=== PATIENT | female | born 1975 | race Caucasian/White ===

== ENCOUNTER 2017-01-04 16:06 | Emergency (ER) | payer OTHER ==
[2017-01-04 16:13] VITALS: BMI 26.4
[2017-01-04 17:51] LABS: BASOPHIL 0.6 % (0-2.0); EOSINOPHIL 0.7 % (0-4.5); MCH 26.4 pg (25.7-33.7); MCHC 32.7 g/dl (32.0-36.0); MEAN CELL VOLUME 80.7 fl (80-96); MEAN PLT VOLUME 9.9 fl (7.5-11.1); NEUTROPHILS 68.6 % (42.8-82.8); PLATELET COUNT 201 K/MM3 (134-434); RDW 16.4 % (11.6-15.6); WHITE BLOOD COUNT 7.8 K/mm3 (4.0-10.0)
[2017-01-04 17:57] LABS: URINE APPEARANCE CLOUDY; URINE BILIRUBIN NEGATIVE (NEGATIVE); URINE BLOOD 2+ (NEGATIVE); URINE COLOR AMBER; URINE GLUCOSE (UA) NEGATIVE (NEGATIVE); URINE KETONE NEGATIVE (NEGATIVE); URINE NITRITE NEGATIVE (NEGATIVE); URINE PROTEIN NEGATIVE (NEGATIVE); URINE UROBILINOGEN NEGATIVE mg/dL (0.2-1.0)
--- NOTE | 2017-01-04 17:59 | PDOC ---
History of Present Illness - General Chief Complaint: Pain Stated Complaint: FATIGUE Time Seen by Provider: 01/04/17 16:51 History Source: Patient Exam Limitations: No Limitations - History of Present Illness Travel History: No Initial Comments: 01/04/17 17:48 This is a 41-year-old woman with past medical history of who presents today with pelvic cramping and vaginal spotting for 2 days. Patient states she was seen at [facility] approximately 2-3 weeks ago and had a positive urine test there. Patient was her usual state of health until 2 days ago when she noticed some spotting in her underwear. She denies any recent sexual activity. Last menstrual period was 11/27/2016. She rates the pain for/10 and describes as a usual menstrual cramp. She denies fevers, chills, chest pain, dysuria, hematuria, rectal bleeding, constipation, diarrhea, vaginal discharge other than the spotting. PMD: none Well Puller: None Denies tobacco denies drugs Reported occasional EtOH until she found she was . None since then. Past medical history: None Past surgical history: None NKDA Past History - Past Medical History Allergies/Adverse Reactions: Allergies Allergy/AdvReac Type Severity Reaction Status Date / Time No Known Allergies Allergy Verified 01/04/17 16:09 Home Medications: Ambulatory Orders NK [No Known Home Medication] 08/21/15 Asthma: No Cancer: No Cardiac Disorders: No COPD: No Diabetes: No HTN: No Seizures: No Thyroid Disease: No - Reproductive History Is Patient Now?: Yes (8 weeks) - Suicide/Smoking/Psychosocial Hx Smoking History: Never smoked Hx Alcohol Use: No Drug/Substance Use Hx: No Hx Substance Use Treatment: No Review of Systems - Review of Systems Able to Perform ROS?: Yes Is the patient limited Somali proficient: No Constitutional: No: Symptoms Reported HEENTM: No: Symptoms Reported Respiratory: No: Symptoms reported Cardiac (ROS): No: Symptoms Reported ABD/GI: Yes: See HPI : No: Symptoms Reported Musculoskeletal: No: Symptoms Reported Integumentary: No: Symptoms Reported Neurological: No: Symptoms reported *Physical Exam - Vital Signs Last Vital Signs Temp Pulse Resp BP Pulse Ox 97.6 F 56 L 18 146/84 100 01/04/17 16:09 01/04/17 16:09 01/04/17 16:09 01/04/17 16:09 01/04/17 16:09 - Physical Exam General Appearance: Yes: Appropriately Dressed. No: Apparent Distress HEENT: positive: EOMI, CAMILA, Normal ENT Inspection Neck: positive: Trachea midline, Supple. negative: Tender Respiratory/Chest: positive: Lungs Clear, Normal Breath Sounds. negative: Chest Tender, Respiratory Distress, Accessory Muscle Use Cardiovascular: positive: Regular Rhythm, S1, S2, Bradycardia. negative: Edema , JVD, Murmur Female Pelvic Exam: positive: normal external exam, cervical os closed, adnexal tenderness (left side). negative: CMT, discharge Gastrointestinal/Abdominal: positive: Normal Bowel Sounds, Soft. negative: Tender Musculoskeletal: positive: Normal Inspection. negative: CVA Tenderness Extremity: positive: Normal Capillary Refill, Normal Inspection, Normal Range of Motion Integumentary: positive: Normal Color, Dry, Warm Neurologic: positive: retail account representative II-XII NML intact, Fully Oriented, Alert, Normal Mood/ Affect, Normal Response, Motor Strength 06/28 ED Treatment Course - LABORATORY CBC & Chemistry Diagram: 01/04/17 17:35 01/04/17 17:35 - RADIOLOGY Radiology Studies Ordered: Category Date Time Status TRANSVAGINAL US PREG [US] Stat Ultrasound 01/04/17 17:32 Ordered Medical Decision Making - Medical Decision Making 01/04/17 17:59 A/P: This is a 41-year-old woman with past medical history of who presents today with pelvic cramping and vaginal spotting for 2 days. Patient states she was seen at [facility] approximately 2-3 weeks ago and had a positive urine test there. Patient was her usual state of health until 2 days ago when she noticed some spotting in her underwear. She denies any recent sexual activity. Last menstrual period was 11/27/2016. She rates the pain for/10 and describes as a usual menstrual cramp. She also reports vaginal itching. She denies fevers, chills, chest pain, dysuria, hematuria, rectal bleeding, constipation, diarrhea, vaginal discharge other than the spotting. SENIOR LINUX UNIX ENGINEER exam with no blood in the vaginal vault. Normal vaginal secretions noted. Cervical os closed. Adnexal tenderness on the left side. No cervical motion tenderness. Differential diagnoses include ectopic , catie infection I will collect CBC with differential, BMP, urinalysis, urine test, beta hCG, transvaginal ultrasound, urine culture, urine GC. I'll reevaluate the patient after all testing is completed. 01/04/17 18:49 Patient signed out to JEMAL Tripathi. *DC/Admit/Observation/Transfer Diagnosis at time of Disposition: Threatened - Discharge Dispostion Disposition: HOME Condition at time of disposition: Stable Admit: No - Referrals Referrals: Sherrell Barksdale MD [Staff Physician] - - Patient Instructions Printed Discharge Instructions: DI for Threatened Additional Instructions: Pelvic rest MUST FOLLOW UP WITH WITH YOUR DIRECTOR OF MARKET INTELLIGENCE OR THE ONE LISTED ON YOUR DISCHARGE/ ABRAHAM RIVERO YOUR BETA HCG TODAY; 21109.4 MUST HAVE REPEAT ULTRASOUND RETURN TO THE ER FOR SEVERE/PERSISTENT/WORSENING SYMPTOMS You had a transvaginal ultrasound done today in the emergency department: This is a preliminary exam impression: Within the endometrium a cystic fluid collection most likely represents a gestational sac with no pole and no yolk sac identified. This may be due to a spontaneous or an early intrauterine that is too early to detect a pole and an early ectopic Print Language: ANGOLAN - Post Discharge Activity
[2017-01-04 18:02] LABS: URINE MUCUS MODERATE; URINE RBC 23; URINE WBC 11
[2017-01-04 18:20] LABS: ANION GAP 6 (8-16); CALCIUM 9.4 mg/dL (8.5-10.1); CO2 28 mmol/L (21-32); CREATININE 0.6 mg/dL (0.55-1.02); GLUCOSE,RANDOM 91 mg/dL (74-106)
[2017-01-04 19:59] VITALS: BP 155/94; PULSE 57; TEMP 98.2
--- NOTE | 2017-01-04 21:44 | PDOC ---
*Physical Exam - Vital Signs Last Vital Signs Temp Pulse Resp BP Pulse Ox 98.2 F 57 L 16 155/94 100 01/04/17 19:58 01/04/17 19:58 01/04/17 19:58 01/04/17 19:58 01/04/17 19:58 ED Treatment Course - LABORATORY CBC & Chemistry Diagram: 01/04/17 17:35 01/04/17 17:35 - ADDITIONAL ORDERS Additional order review: Laboratory Results 01/04/17 01/04/17 01/04/17 17:35 17:35 17:35 Sodium 138 Potassium 3.6 Chloride 104 Carbon Dioxide 28 Anion Gap 6 L BUN 9 D Creatinine 0.6 Random Glucose 91 D Calcium 9.4 Beta HCG, Quant 62622.4 Urine Color Jessica Urine Appearance Cloudy Urine pH 6.0 Ur Specific [place] 1.021 Urine Protein Negative Urine Glucose (UA) Negative Urine Ketones Negative Urine Blood 2+ H Urine Nitrite Negative Urine Bilirubin Negative Urine Urobilinogen Negative Urine WBC (Auto) 11 Urine RBC (Auto) 23 Ur Epithelial Cells Rare Urine Mucus Moderate Urine HCG, Qual Positive Blood Type O POSITIVE Antibody Screen Negative 01/04/17 17:35 RBC 4.93 D MCV 80.7 MCHC 32.7 RDW 16.4 H MPV 9.9 Neutrophils % 68.6 D Lymphocytes % 22.6 D Monocytes % 7.5 Eosinophils % 0.7 D Basophils % 0.6 - RADIOLOGY Radiograph Interpretation: 01/04/17 21:43 Transvaginal ultrasound preliminary report: Within the endometrium a cystic fluid collection most likely represents a gestational sac with no pole and no yolk sac identified. This may be due to a spontaneous or an early intrauterine that is too early to to detect a pole and an early ectopic *DC/Admit/Observation/Transfer Diagnosis at time of Disposition: Threatened - Discharge Dispostion Disposition: HOME Condition at time of disposition: Stable Admit: No - Referrals Referrals: Sherrell Barksdale MD [Staff Physician] - - Patient Instructions Printed Discharge Instructions: DI for Threatened Additional Instructions: Pelvic rest MUST FOLLOW UP WITH WITH YOUR MOTOR VEHICLE PARTS INTERPRETER OR THE ONE LISTED ON YOUR DISCHARGE/ ABRAHAM RIVERO YOUR BETA HCG TODAY; 44852.4 MUST HAVE REPEAT ULTRASOUND RETURN TO THE ER FOR SEVERE/PERSISTENT/WORSENING SYMPTOMS You had a transvaginal ultrasound done today in the emergency department: This is a preliminary exam impression: Within the endometrium a cystic fluid collection most likely represents a gestational sac with no pole and no yolk sac identified. This may be due to a spontaneous or an early intrauterine that is too early to detect a pole and an early ectopic Print Language: BELGIAN - Post Discharge Activity
[2017-01-04 22:05] LABS: URINE LEUK ESTERASE Negative (NEGATIVE)
== END 2017-01-04 22:14 | disposition home or self-care (01) ==
LOC: JER 16:06
DX: O20.0 Threatened abortion (principal); Z3A.08 8 weeks gestation of pregnancy
CPT/HCPCS: 36415; 76817-TC; 80048; 81003; 81015; 84702; 84703; 85025; 86850; 86900; 86901; 87086; 99282-25

== ENCOUNTER 2017-01-06 17:57 | Emergency (ER) | payer OTHER ==
[2017-01-06 18:02] VITALS: BP 149/87; PULSE 58; TEMP 98.1; BMI 24.7
--- NOTE | 2017-01-06 18:02 | PDOC ---
Rapid Medical Evaluation Chief Complaint: Blood Pressure Problem Time Seen by Provider: 01/06/17 18:00 Medical Evaluation: Allergies Allergy/AdvReac Type Severity Reaction Status Date / Time No Known Allergies Allergy Verified 01/06/17 17:58 01/06/17 18:00 I have performed a brief in-person evaluation of this patient. The Patient presents with a chief complaint of elevated blood pressure Patient seen in ed 01/04/17 for threatened , followed up with ob today who referred her back her to ed due to elevated blood pressure in office. complaining of blurred vision. , 6 weeks . Pertinent physical exam findings are: NAD unlabored breathing no peripheral edema steady gait I have ordered the following: urinalysis The patient will proceed to the ED for further evaluation.
[2017-01-06 18:43] LABS: URINE APPEARANCE SLCLOUDY; URINE BILIRUBIN NEGATIVE (NEGATIVE); URINE BLOOD 2+ (NEGATIVE); URINE COLOR LTYELLOW; URINE GLUCOSE (UA) NEGATIVE (NEGATIVE); URINE KETONE NEGATIVE (NEGATIVE); URINE NITRITE NEGATIVE (NEGATIVE); URINE PROTEIN NEGATIVE (NEGATIVE); URINE UROBILINOGEN NEGATIVE mg/dL (0.2-1.0)
--- NOTE | 2017-01-06 18:48 | PDOC ---
History of Present Illness - General History Source: Patient, Old Records Exam Limitations: No Limitations - History of Present Illness Initial Comments: 01/06/17 18:53 The patient is a 41 year old female who is currently 6 weeks and presenting with her , with a significant past medical history of HTN, who presents to the emergency department with a possible threatened . The patient was seen in the ED 3 days ago with vaginal bleeding, back pain and abdominal cramping. She was told that it was possible she was having a threatened and told to follow up with her THERMAL SURFACING MACHINE OPERATOR. Today she went to her THERMAL SURFACING MACHINE OPERATOR with the same symptoms and was advised to come to the ED for further evaluation. According to the patient, she received a pelvic exam today while at her GYNs office. The patient denies chest pain, shortness of breath, headache and dizziness. Denies fever, chills, nausea, vomit, diarrhea and constipation. Denies dysuria, frequency, urgency and hematuria. Allergies: None Past surgical history: None reported Social history: No alcohol, tobacco or drug use reported <Abelino Betancourt - Last Filed: 01/06/17 18:52> <Ophelia Hernandez - Last Filed: 01/06/17 23:49> - General Chief Complaint: Blood Pressure Problem Stated Complaint: 6wks preg / BLOOD PRESSURE PROBLEM Time Seen by Provider: 01/06/17 18:00 Past History <Abelino Betancourt - Last Filed: 01/06/17 18:52> - Past Medical History Asthma: No Cancer: No Cardiac Disorders: No COPD: No Diabetes: No HTN: Yes Seizures: No Thyroid Disease: No - Suicide/Smoking/Psychosocial Hx Smoking History: Never smoked Have you smoked in the past 12 months: No Information on smoking cessation initiated: No Hx Alcohol Use: No Drug/Substance Use Hx: No Substance Use Type: None Hx Substance Use Treatment: No <Ophelia Hernandez - Last Filed: 01/06/17 23:49> - Past Medical History Allergies/Adverse Reactions: Allergies Allergy/AdvReac Type Severity Reaction Status Date / Time No Known Allergies Allergy Verified 01/06/17 17:58 Home Medications: Ambulatory Orders NK [No Known Home Medication] 08/21/15 Review of Systems - Review of Systems Able to Perform ROS?: Yes Comments:: 01/06/17 18:53 GENERAL/CONSTITUTIONAL: No fever or chills. No weakness. HEAD, EYES, EARS, NOSE AND THROAT: No change in vision. No ear pain or discharge. No sore throat.- CARDIOVASCULAR: No chest pain or shortness of breath RESPIRATORY: No cough, wheezing, or hemoptysis. GASTROINTESTINAL: (+) Abdominal pain. No nausea, vomiting, diarrhea or constipation. GENITOURINARY: (+) Vaginal bleeding. No dysuria, frequency, or change in urination. MUSCULOSKELETAL: (+) Back pain. No joint or muscle swelling or pain. No neck pain. SKIN: No rash NEUROLOGIC: No headache, vertigo, loss of consciousness, or change in strength/ sensation. ENDOCRINE: No increased thirst. No abnormal weight change HEMATOLOGIC/LYMPHATIC: No anemia, easy bleeding, or history of blood clots. ALLERGIC/IMMUNOLOGIC: No hives or skin allergy. <Abelino Betancourt - Last Filed: 01/06/17 18:52> *Physical Exam - Vital Signs Last Vital Signs Temp Pulse Resp BP Pulse Ox 98.1 F 58 L 18 149/87 100 01/06/17 17:58 01/06/17 17:58 01/06/17 17:58 01/06/17 17:58 01/06/17 17:58 - Physical Exam Comments: 01/06/17 18:53 GENERAL: Awake, alert, and fully oriented, in no acute distress HEAD: No signs of trauma, normocephalic, atraumatic EYES: PERRLA, EOMI, sclera anicteric, conjunctiva clear ENT: Auricles normal inspection, hearing grossly normal, nares patent, oropharynx clear without exudates. Moist mucosa NECK: Normal ROM, supple, no lymphadenopathy, JVD, or masses LUNGS: No distress, speaks full sentences, clear to auscultation bilaterally HEART: Regular rate and rhythm, normal S1 and S2, no murmurs, rubs or gallops, peripheral pulses normal and equal bilaterally. ABDOMEN: Soft, nontender, normoactive bowel sounds. No guarding, no rebound. No masses EXTREMITIES : Normal inspection, Normal range of motion, no edema. No clubbing or cyanosis. NEUROLOGICAL: Cranial nerves II through XII grossly intact. Normal speech, normal gait, no focal sensorimotor deficits SKIN: Warm, Dry, normal turgor, no rashes or lesions noted. PELVIC EXAM: Deferred. <Abelino Betancourt - Last Filed: 01/06/17 18:52> - Vital Signs Last Vital Signs Temp Pulse Resp BP Pulse Ox 98.1 F 58 L 18 149/87 100 01/06/17 17:58 01/06/17 17:58 01/06/17 17:58 01/06/17 17:58 01/06/17 17:58 <Ophelia Hernandez - Last Filed: 01/06/17 23:49> ED Treatment Course - ADDITIONAL ORDERS Additional order review: Laboratory Results 01/06/17 18:10 Urine Color Ltyellow Urine Appearance Slcloudy Urine pH 6.0 Ur Specific [place] 1.012 Urine Protein Negative Urine Glucose (UA) Negative Urine Ketones Negative Urine Blood 2+ H Urine Nitrite Negative Urine Bilirubin Negative Urine Urobilinogen Negative <Abelino Betancourt - Last Filed: 01/06/17 18:52> Medical Decision Making - Medical Decision Making 01/06/17 23:40 31-year-old female who states she is about 6 weeks , presents with vaginal bleeding. She was seen here in January 04 for similar complaint. On Jan 04 beta-hCG 15,000 and pelvic US irregular intrauterine saclike structure, but no evidence of pole or yolk sac, very suspicious for failed early . Beta-hCG is only 11,000. Blood type O+. Ultrasound tonight shows a twin gestation. Twin A is 6 weeks 6 days. No heart activity could be documented compatible with demise. 20. Gestational age 6 weeks 1 day. No activity could be documented compatible with demise. Impression demise. Plan follow-up with her VARIOUS EXCEPTIONALITIES TEACHER this week <Ophelia Hernandez - Last Filed: 01/06/17 23:49> *DC/Admit/Observation/Transfer - Attestations Scribe Attestion: 01/06/17 18:54 Documentation prepared by Abelino Betancourt, acting as medical imaging specialist for Ophelia Hernandez MD <Abelino Betancourt - Last Filed: 01/06/17 18:52> <Ophelia Hernandez - Last Filed: 01/06/17 23:49> Diagnosis at time of Disposition: demise, Essential hypertension Qualifiers: Weeks of gestation: less than 8 weeks Qualified Code(s): Z3A.01 - Less than 8 weeks gestation of - Discharge Dispostion Disposition: HOME Condition at time of disposition: Stable - Patient Instructions Printed Discharge Instructions: DI for Threatened , DI for High Blood Pressure Additional Instructions: please followup with your auto radio mechanic It is important to see your regular physician about your high blood pressure Print Language: UKRAINIAN
[2017-01-06 18:50] LABS: URINE MUCUS RARE; URINE RBC 6; URINE WBC 4
[2017-01-06 21:31] LABS: URINE LEUK ESTERASE 1+ (NEGATIVE)
== END 2017-01-07 00:12 | disposition home or self-care (01) ==
LOC: JER 17:57
DX: O30.091 Twin pregnancy, unable to determine number of placenta and number of amniotic sacs, first trimester (principal); O02.1 Missed abortion; O10.911 Unspecified pre-existing hypertension complicating pregnancy, first trimester; Z3A.01 Less than 8 weeks gestation of pregnancy
CPT/HCPCS: 36415; 76817-TC; 81003; 81015; 84702; 86850; 86900; 86901; 99283-25

== ENCOUNTER 2017-01-14 10:24 | Day surgery (SDC) | payer OTHER ==
[2017-01-14 11:03] LABS: BASOPHIL 0.2 % (0-2.0); EOSINOPHIL 1.6 % (0-4.5); MCH 25.8 pg (25.7-33.7); MCHC 31.5 g/dl (32.0-36.0); MEAN PLT VOLUME 9.6 fl (7.5-11.1); NEUTROPHILS 67.4 % (42.8-82.8); PLATELET COUNT 176 K/MM3 (134-434); RDW 16.9 % (11.6-15.6)
[2017-01-14 11:16] LABS: INR 1.04 (0.82-1.09); PROTHROMBIN TIME (PATIENT) 11.8 SEC (9.98-11.88)
[2017-01-14 11:35] LABS: ALBUMIN 3.4 g/dl (3.4-5.0); ANION GAP 5 (8-16); CALCIUM 8.5 mg/dL (8.5-10.1); CO2 28 mmol/L (21-32); GLUCOSE,RANDOM 84 mg/dL (74-106)
[2017-01-14 11:50] VITALS: BMI 24.7
[2017-01-14 11:55] LABS: ALK PHOS 88 U/L (45-117); BILIRUBIN,TOTAL 0.4 mg/dL (0.2-1.0); CREATININE 0.6 mg/dL (0.55-1.02); SGOT/AST 14 U/L (15-37); SGPT/ALT 26 U/L (12-78); TOT PROT 6.9 g/dl (6.4-8.2)
[2017-01-14 15:19] LABS: URINE APPEARANCE CLEAR; URINE BILIRUBIN NEGATIVE (NEGATIVE); URINE BLOOD 2+ (NEGATIVE); URINE COLOR YELLOW; URINE GLUCOSE (UA) NEGATIVE (NEGATIVE); URINE KETONE NEGATIVE (NEGATIVE); URINE NITRITE NEGATIVE (NEGATIVE); URINE PROTEIN NEGATIVE (NEGATIVE); URINE UROBILINOGEN NEGATIVE mg/dL (0.2-1.0)
[2017-01-14 15:59] LABS: URINE MUCUS RARE; URINE RBC 67 /hpf (0-3); URINE WBC 2 /hpf (3-5)
--- NOTE | 2017-01-14 16:18 | EKG ---
Test Reason : Blood Pressure : / mmHG Vent. Rate : 049 BPM Atrial Rate : 049 BPM P-R Int : 142 ms QRS Dur : 094 ms QT Int : 470 ms P-R-T Axes : 045 034 029 degrees QTc Int : 424 ms MARKED SINUS BRADYCARDIA ST ELEVATION, CONSIDER EARLY REPOLARIZATION NO PREVIOUS ECGS AVAILABLE Confirmed by KIARA SKINNER MD ([id number]) on 01/14/2017 4:18:03 PM Referred By: Danielle Villareal Confirmed By:KIARA SKINNER MD
[2017-01-14] MEDS ORDERED: LACTATED RINGERS SOLUTION 1,000 ML/1,000 ML INFUS.BAG IV SCH (17:30)
--- NOTE | 2017-01-14 17:35 | HP ---
Past Medical History - Primary Care Physician PCP:: Danielle Villareal - Admission Chief Complaint: 41 , LMP 12/03/16 6 weeks gestation , was diagnozed twin gestation with abs heart for boths poles on 01/06 by sono. pt continues to bleed , ut still enlarged, hence she is taken for d&C suction today. History of Present Illness: h/o vaginal bleeding for 2 weeks seen in ER on 01/06/17 [place]cg [place] 79326.4 miu . 01/06/17 sono shows twin gestation , A sac with pole 5mm, 6.1 wks, twin B 5.6 mm 6.2 wks ga . no feta heart for both poles. ut 9.3x6.4 cm . pt continues to bleed has cramps . 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 Weeks Gestation by Dates: 6 Heme/Onc: No: Anemia Infectious Disease: No: STD's Endocrine: No: Diabetes Mellitus - Past Surgical History Past Surgical History: Yes: None Hx Myomectomy: No Hx Transabdominal Cerclage: No - Smoking History Smoking history: Never smoked Have you smoked in the past 12 months: No - Alcohol/Substance Use Hx Alcohol Use: No History of Substance Use: reports: None - Social History History of Recent Travel: No Home Medications - Allergies Allergies/Adverse Reactions: Allergies Allergy/AdvReac Type Severity Reaction Status Date / Time No Known Allergies Allergy Verified 01/14/17 11:51 - Home Medications Home Medications: Ambulatory Orders Iron 18 mg PO DAILY 01/14/17 Physical Exam-CHECK INSPECTOR Vital Signs: Vital Signs Temperature 98.2 F 01/14/17 12:12 Pulse Rate 52 L 01/14/17 12:12 Respiratory Rate 20 01/14/17 12:12 Blood Pressure 162/88 01/14/17 12:12 O2 Sat by Pulse Oximetry (%) 100 01/14/17 12:12 Constitutional: Yes: Well Nourished, No Distress Eyes: Yes: WNL HENT: Yes: WNL, Normocephalic Neck: Yes: WNL Cardiovascular: Yes: WNL, Regular Rate and Rhythm Respiratory: Yes: WNL, Regular, CTA Bilaterally Gastrointestinal: Yes: WNL. No: Distention, Tenderness, Vomiting Renal/: Yes: WNL Pelvis: Yes: WNL External Genitalia: Yes: Normal Vaginal Exam: Yes: Bleeding Cervix: Yes: Bleeding, Other (os close). No: Cerv Motion Tenderness Uterus: Yes: Anteverted, Enlarged (8 weeks size), Soft. No: Tender Adnexa: Normal: Bilateral, Not Palpable: Bilateral (Not tender) Breast(s): Yes: WNL. No: Mass Musculoskeletal: Yes: WNL Extremities: Yes: WNL Edema: No Integumentary: Yes: WNL Neurological: Yes: WNL ...Motor Strength: WNL Psychiatric: Yes: WNL Labs: CBC, BMP 01/14/17 10:51 01/14/17 10:51 Laboratory Tests 01/14/17 10:51 Blood Type O POSITIVE Antibody Screen Negative Problem List - Problem (1) Missed Code(s): O02.1 - MISSED (2) 6 weeks gestation of Code(s): Z3A.01 - LESS THAN 8 WEEKS GESTATION OF (3) Twin gestation in first trimester Code(s): O30.001 - TWIN PREG, UNSP NUM PLCNTA & AMNIO SACS, FIRST TRIMESTER (4) AMA (advanced maternal age) multigravida 35+ Code(s): O09.529 - SUPERVISION OF ELDERLY MULTIGRAVIDA, UNSPECIFIED TRIMESTER Assessment/Plan 41 yrs , 6 weeks gestation twins, missed ab , abs FHR for both poles, continuue to bleed Plan Dilatation Suction Currettage
[2017-01-14 20:03] LABS: URINE LEUK ESTERASE Negative (NEGATIVE)
[2017-01-14] MEDS ORDERED: MIDAZOLAM HCL 2 MG/2 ML SINGLE DOSE VIAL ONE (20:22)
[2017-01-14] MEDS ORDERED: PROPOFOL 20 ML ONE (20:22)
[2017-01-14] MEDS ORDERED: OXYTOCIN 10 UNITS/ML VIAL ONE (20:34)
[2017-01-14] MEDS ORDERED: DEXAMETHASONE SOD PHOSPHATE 4 MG/1 ML VIAL ONE (20:39)
[2017-01-14] MEDS ORDERED: ceFAZolin SODIUM 1 GM VIAL ONE (20:39)
[2017-01-14] MEDS ORDERED: IBUPROFEN 400 MG TABLET (FP) PO PRN (20:49)
[2017-01-14] MEDS ORDERED: ACETAMINOPHEN 325 MG TABLET (FP) PO PRN (20:49)
[2017-01-14] MEDS ORDERED: oxyCODONE HCL 5 MG TABLET PO PRN (20:49)
--- NOTE | 2017-01-14 20:55 | OP ---
Operative Note - Note: Operative Date: 01/14/17 Pre-Operative Diagnosis: missed ab, twins, 6 weeks Operation: suction curettage Findings: ut av 8 weeks size, uterocervical length 9 cm os open, poc clots at os , removed 10 #suction canula used curretage done Post-Operative Diagnosis: Other (sp incomplete ) Surgeon: Danielle Villareal Anesthesiologist/SAP PROJECT MANAGER: Neymar Servin Anesthesia: General Specimens Removed: uterine contents Estimated Blood Loss (mls): 25 Fluid Volume Replaced (mls): 500 (RL + 20 iu pitocin ) Operative Report Dictated: Yes
[2017-01-14] MEDS ORDERED: ONDANSETRON 4 MG/2 ML VIAL IVPUSH PRN (21:06)
[2017-01-14] MEDS ORDERED: LACTATED RINGERS SOLUTION 1,000 ML IV SCH (21:15)
[2017-01-14 22:20] VITALS: PULSE 55
[2017-01-14 23:57] VITALS: BP 148/79; TEMP 97.8
--- NOTE | 2017-01-15 00:58 | OP ---
DATE OF OPERATION: 01/14/2017 PREOPERATIVE DIAGNOSIS: Missed at 6 week gestation. POSTOPERATIVE DIAGNOSIS: Spontaneous incomplete . SURGEON: Danielle Villareal MD ANESTHESIOLOGIST: Neymar Servin MD ANESTHESIA: General. FINDINGS: A 41-year-old, 5, para 4-0-0-4 , LMP December 13, 2016, 6 week gestation who has been bleeding for 2 weeks and a January 06, 2017, sonogram shows a twin gestational sac with a pole in each sac about 6.1 weeks' gestation. Absence of heart movement. HCG was 15,804 on January 06 and HCG done today on January 14 is 2435. PROCEDURE: The patient is taken to the operating room where general anesthesia was given. Placed in the dorsal lithotomy position and the perineum and vagina were painted with betadine and draped in the usual manner. Timeout was done and preoperative IV Ancef was given by the anesthesiologist. Pitocin 20 units in IV fluid was administered. Pelvic examination was done. Uterus was anteverted, 8 weeks' size and the posterior os was opened. Blood clots and products were noted at the os. The speculum was placed and the anterior lip of the cervix was held with ring forceps. With a long forceps the blood clots and the products at the os were removed. Then a suction cannula was introduced into the uterine cavity and uterine contents were suctioned out. The curettage was done until a gritty sensation was felt. Estimated blood loss was 25 mL. Her blood type is O+. The patient tolerated the procedure well and she was transferred to the recovery room in stable condition. [place] [id number]
--- NOTE | 2017-01-17 15:56 | PATH ---
Surgical Pathology Report Patient Name: KAMRAN ALMEIDA [facility]. Rec. #: [id number] /Age/Gender: 1975 (Age: 41) / F Account: [id number] Location: [facility] SURGICAL Taken: 01/14/2017 Received: 01/15/2017 Reported: 01/17/2017 Physicians: Danielle Villareal M.D. Specimen(s) Received UTERINE CONTENTS Clinical History 41 g, 6 weeks twin gestational sac Final Diagnosis UTERINE CONTENTS, EVACUATION: CHORIONIC VILLI CONSISTENT WITH PRODUCTS OF CONCEPTION, AND PORTIONS OF DECIDUA. Electronically Signed Mina Chase M.D. Gross Description Received in formalin labeled "contents of conception," is a 7.3 x 7.0 x 1.5 cm focally disrupted gestational sac. Villous tissue is identified. No somatic tissue is identified. Supervisor Labor Gang sections are submitted in one cassette. /01/15/201701/15/2017
== END 2017-01-15 00:07 | disposition home or self-care (01) ==
LOC: JASU-SURG 10:24 → J8W 22:11 → JASU-SURG 01-15 00:07
PROVIDERS: ATTEND Obstetrics & Gynecology
PROC: 10D17ZZ Extraction of Products of Conception, Retained, Via Natural or Artificial Opening (ICD-10-PCS; principal; 2017-01-14 16:00)
DX: O03.4 Incomplete spontaneous abortion without complication (principal)
CPT/HCPCS: 36415; 71020-TC; 80053; 81003; 81015; 84702; 85025; 85610; 86850; 86900; 86901; 88305-TC; 93005; 93010; 94760

== ENCOUNTER 2017-12-15 16:54 | Emergency (ER) | payer OTHER ==
[2017-12-15 17:16] VITALS: TEMP 98.6; BMI 26.4
[2017-12-15] MEDS ORDERED: amLODIPine BESYLATE 10 MG TABLET (FP) PO ONE (18:17)
--- NOTE | 2017-12-15 18:23 | PDOC ---
Attending Attestation - Resident Resident Name: David Marrero - ED Attending Attestation I have performed the following: I have examined & evaluated the patient, The case was reviewed & discussed with the resident, I agree w/resident's findings & plan, Exceptions are as noted - HPI HPI: 12/15/17 18:22 42 yo female sent from @ [facility] because she has had elevated BP for some time and has reported some dizziness for at least a month. - Physicial Exam PE: 12/15/17 21:11 well-developed, well-nourished 42-year-old female who states she currently has no complaints head Normocephalic/atraumatic. eyes nava eomi Neck no JVD is, no bruits CVS regular rate and rhythm S1, S2 Lungs clear to auscultation bilaterally Abdomen is flat, nontender. Extremities there is no edema, no clubbing No CVA tenderness. Skin is warm and dry. Neuro she is alert and oriented 3, conversant, ambulating with ease, no gross focal neural deficits - Medical Decision Making 12/15/17 21:14 This patient was seen at [address] [place] [address] and found to be hypertensive. The patient states that the physician from [address] [place] [address] eprescribed a prescription to [facility], but she does not know the name of the medication -she was not given any meds at the clinic but transported to the ER for treatment. 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
--- NOTE | 2017-12-15 18:38 | PDOC ---
History of Present Illness <Ophelia Hernandez - Last Filed: 12/15/17 21:13> - General History Source: Patient Exam Limitations: Language Barrier (Intepreter [id number]) - History of Present Illness Initial Comments: 12/15/17 18:34 Patient is a 42F with history of HTN here today after finding her blood pressure to be elevated over 200 today at [facility]. The patient reported to the clinic that she had some changes in vision, but these decreases in her vision have happened over the past month plus without any acute changes. She endorses having headaches and episodes of dizziness, but these again are not acute and she has no symptoms at this time. Denies chest pain. Denies shortness of breath. Endorses lower abdominal pain. Denies fevers, chills, nausea, vomiting. <David Marrero - Last Filed: 12/15/17 21:17> - General Chief Complaint: Blood Pressure Problem Stated Complaint: HYPERTENSION Time Seen by Provider: 12/15/17 17:24 Past History <Ophelia Hernandez - Last Filed: 12/15/17 21:13> - Past Medical History Anemia: No Asthma: No Cancer: No Cardiac Disorders: No COPD: No CHF: No Dementia: No Diabetes: No GI Disorders: No Disorders: No HTN: Yes Hypercholesterolemia: No Liver Disease: No Seizures: No Thyroid Disease: No - Suicide/Smoking/Psychosocial Hx Smoking History: Never smoked Have you smoked in the past 12 months: No Hx Alcohol Use: No Drug/Substance Use Hx: No Substance Use Type: None Hx Substance Use Treatment: No <David Marrero - Last Filed: 12/15/17 21:17> - Past Medical History Allergies/Adverse Reactions: Allergies Allergy/AdvReac Type Severity Reaction Status Date / Time No Known Allergies Allergy Verified 12/15/17 17:11 Home Medications: Ambulatory Orders Acetaminophen [Tylenol .Regular Strength -] 650 mg PO Q4H PRN tablet 01/14/17 Ferrous Sulfate [Slow Fe] 142 mg PO BID #60 tablet.er 01/14/17 Ibuprofen [Motrin -] 400 mg PO Q4H PRN tablet 01/14/17 Review of Systems - Review of Systems Comments:: 12/15/17 18:38 GENERAL/CONSTITUTIONAL: No fever or chills. No weakness. HEAD, EYES, EARS, NOSE AND THROAT: No change in vision. No ear pain or discharge. No sore throat. CARDIOVASCULAR: No chest pain or shortness of breath RESPIRATORY: No cough, wheezing, or hemoptysis. GASTROINTESTINAL: No nausea, vomiting, diarrhea or constipation. GENITOURINARY: No dysuria, frequency, or change in urination. MUSCULOSKELETAL: No joint or muscle swelling or pain. No neck or back pain. SKIN: No rash NEUROLOGIC: No headache, vertigo, loss of consciousness, or change in strength/ sensation. ENDOCRINE: No increased thirst. No abnormal weight change HEMATOLOGIC/LYMPHATIC: No anemia, easy bleeding, or history of blood clots. ALLERGIC/IMMUNOLOGIC: No hives or skin allergy. <David Marrero - Last Filed: 12/15/17 21:17> *Physical Exam - Vital Signs Last Vital Signs Temp Pulse Resp BP Pulse Ox 98.6 F 55 L 16 219/89 H 99 12/15/17 17:14 12/15/17 18:21 12/15/17 18:21 12/15/17 18:21 12/15/17 18:21 <Ophelia Hernandez - Last Filed: 12/15/17 21:13> - Vital Signs Last Vital Signs Temp Pulse Resp BP Pulse Ox 98.6 F 55 L 16 219/89 H 99 12/15/17 17:14 12/15/17 18:21 12/15/17 18:21 12/15/17 18:21 12/15/17 18:21 - Physical Exam Comments: 12/15/17 18:39 GENERAL: Awake, alert, and fully oriented, in no acute distress HEAD: No signs of trauma, normocephalic, atraumatic EYES: PERRLA, EOMI, sclera anicteric, conjunctiva clear ENT: Auricles normal inspection, hearing grossly normal, nares patent, oropharynx clear without exudates. Moist mucosa NECK: Normal ROM, supple, no lymphadenopathy, JVD, or masses LUNGS: No distress, speaks full sentences, clear to auscultation bilaterally HEART: Regular rate and rhythm, normal S1 and S2, no murmurs, rubs or gallops, peripheral pulses normal and equal bilaterally. ABDOMEN: Soft, nontender, normoactive bowel sounds. No guarding, no rebound. No masses EXTREMITIES: Normal inspection, Normal range of motion, no edema. No clubbing or cyanosis. NEUROLOGICAL: Cranial nerves II through XII grossly intact. Normal speech, normal gait, no focal sensorimotor deficits. SKIN: Warm, Dry, normal turgor, no rashes or lesions noted. <David Marrero - Last Filed: 12/15/17 21:17> ED Treatment Course - LABORATORY CBC & Chemistry Diagram: 12/15/17 18:40 12/15/17 18:40 - ADDITIONAL ORDERS Additional order review: Laboratory Results 12/15/17 12/15/17 12/15/17 18:40 18:40 18:40 Sodium 138 Potassium 3.9 Chloride 109 H Carbon Dioxide 21 Anion Gap 7 L BUN 12 Creatinine 0.5 L Creat Clearance w eGFR > 60 Random Glucose 83 Calcium 8.3 L Total Bilirubin 0.2 AST 15 ALT 28 Alkaline Phosphatase 86 Total Protein 7.6 Albumin 3.6 Serum , Qual Negative Urine Color Straw Urine Appearance Clear Urine pH 6.0 Ur Specific Henderson 1.009 L Urine Protein Negative Urine Glucose (UA) Negative Urine Ketones Negative Urine Blood 1+ H Urine Nitrite Negative Urine Bilirubin Negative Urine Urobilinogen Negative Ur Leukocyte Esterase 2+ H D Urine WBC (Auto) 3 Urine RBC (Auto) 4 Ur Epithelial Cells Rare 12/15/17 18:40 RBC 4.42 MCV 75.5 L MCHC 31.7 L RDW 16.3 H MPV 10.0 Neutrophils % 58.8 Lymphocytes % 32.3 D Monocytes % 6.2 Eosinophils % 2.0 Basophils % 0.7 D - Medications Given in the ED: ED Medications Discontinued Medications Generic Name Dose Route Start Last Admin Trade Name Micheline PRN Reason Stop Dose Admin Amlodipine Besylate 10 mg 12/15/17 18:17 12/15/17 18:49 Norvasc - PO 12/15/17 18:18 10 mg ONCE ONE Administration Hydrochlorothiazide 25 mg 12/15/17 20:23 12/15/17 20:52 Hctz - PO 12/15/17 20:24 25 mg ONCE ONE Administration <Ophelia Hernandez - Last Filed: 12/15/17 21:13> - LABORATORY CBC & Chemistry Diagram: 12/15/17 18:40 12/15/17 18:40 <David Marrero - Last Filed: 12/15/17 21:17> Medical Decision Making - Medical Decision Making 12/15/17 18:40 Patient is 42F with history of HTN here today with HTN. Vitals notable for BP of 200/110. Patient currently does not have a headache, neurological deficits, chest pain, shortness of breath. Does have mild suprapubic pain on exam. Will evaluate with cbc, cmp, ua, preg test. Per ACEP guidelines, patient does not meet criteria for emergent lowering of blood pressure. Will treat with 10 of amlodipine. Patient has outpatient follow up scheduled for 11:45a on 12/18/17 12/15/17 20:59 Laboratory Tests 12/15/17 12/15/17 12/15/17 18:40 18:40 18:40 WBC 6.7 Hgb 10.6 L Plt Count 212 D BUN 12 Creatinine 0.5 L Ur Leukocyte Esterase 2+ H D Urine WBC (Auto) 3 Urine RBC (Auto) 4 CBC shows mild anemia. CMP shows normal kidney function. UA LE+, but no white count. Given amlodipine, BPs 190/99. Given hctz. 12/15/17 21:14 BP 196/100, dropping 23 points from her maximum reading. Patient states that she was started on a blood pressure medication at the clinic she was at, but does not know the name of the medication. Denies headache, chest pain, shortness of breath. Will discharge with return precaution. Patient expressed understanding of the return precautions. <David Marrero - Last Filed: 12/15/17 21:17> *DC/Admit/Observation/Transfer <Ophelia Hernandez - Last Filed: 12/15/17 21:13> - Discharge Dispostion Decision to Admit order: No <David Marrero - Last Filed: 12/15/17 21:17> Diagnosis at time of Disposition: Essential hypertension - Discharge Dispostion Disposition: HOME Condition at time of disposition: Good - Referrals Referrals: [facility] [place] [Provider Group] - Patient Instructions Printed Discharge Instructions: DI for High Blood Pressure Additional Instructions: Regrese a la robbie de emergencias si presenta dolor en el pecho, dificultad para respirar o dolor de donal. Por favor, fran un seguimiento con saravia PCP, se ortega programado blanca tony para usted en la clnica a continuacin a las 11:45 del 18/12/17.
[2017-12-15] MEDS ORDERED: amLODIPine BESYLATE 5 MG TABLET (FP) ONE (18:47)
[2017-12-15 18:49] LABS: BASO % 0.7 % (0-2.0); HEMATOCRIT 33.4 % (32.4-45.2); HEMOGLOBIN 10.6 GM/dL (10.7-15.3); LYMPH % 32.3 % (8-40); MCH 23.9 pg (25.7-33.7); MCHC 31.7 g/dl (32.0-36.0); MEAN CELL VOLUME 75.5 fl (80-96); MONO % 6.2 % (3.8-10.2); NEUT % 58.8 % (42.8-82.8); PLATELET COUNT 212 K/MM3 (134-434); RBC 4.42 M/mm3 (3.60-5.2); RDW 16.3 % (11.6-15.6); WHITE BLOOD COUNT 6.7 K/mm3 (4.0-10.0)
[2017-12-15 19:10] LABS: URINE APPEARANCE CLEAR; URINE BILIRUBIN NEGATIVE (<2.0 mg/dL); URINE COLOR STRAW; URINE GLUCOSE (UA) NEGATIVE (NEGATIVE); URINE KETONE NEGATIVE (NEGATIVE); URINE LEUK ESTERASE 2+ (NEGATIVE); URINE NITRITE NEGATIVE (NEGATIVE); URINE PROTEIN NEGATIVE (NEGATIVE); URINE UROBILINOGEN NEGATIVE mg/dL (0.2-1.0)
[2017-12-15 19:14] LABS: EPI CELLS RARE /HPF (FEW)
[2017-12-15] MEDS ORDERED: HYDROCHLOROTHIAZIDE 25 MG TABLET (FP) PO ONE (20:23)
[2017-12-15 20:28] LABS: CREATININE 0.5 mg/dL (0.55-1.3)
[2017-12-15 20:46] LABS: ALBUMIN 3.6 g/dl (3.4-5.0); ALK PHOS 86 U/L (45-117); ANION GAP 7 MMOL/L (8-16); BILIRUBIN,TOTAL 0.2 mg/dL (0.2-1); BLOOD UREA NITROGEN 12 mg/dL (7-18); CALCIUM 8.3 mg/dL (8.5-10.1); CHLORIDE 109 mmol/L (98-107); CO2 21 mmol/L (21-32); GLUCOSE,RANDOM 83 mg/dL (74-106); POTASSIUM 3.9 mmol/L (3.5-5.1); SGOT/AST 15 U/L (15-37); SGPT/ALT 28 U/L (13-61); SODIUM 138 mmol/L (136-145); TOT PROT 7.6 g/dl (6.4-8.2)
[2017-12-15] MEDS ORDERED: HYDROCHLOROTHIAZIDE 25 MG TABLET (FP) ONE (20:51)
[2017-12-15 21:28] VITALS: BP 187/94; PULSE 51
== END 2017-12-15 21:35 | disposition home or self-care (01) ==
LOC: JER 16:54
DX: I10 Essential (primary) hypertension (principal)
CPT/HCPCS: 36415; 80053; 81003; 81015; 84703; 85025; 99283-25

== ENCOUNTER 2024-02-20 23:50 | Emergency (ER) | payer SELFPAY ==
[2024-02-20 23:59] VITALS: BP 219/91; PULSE 60; RESP 20; TEMP 97.9; BMI 28.3
[2024-02-21] MEDS ORDERED: AMOX TR/POT CLAV 875MG/125MG TABLETS (FP) ONE (00:29)
[2024-02-21] MEDS ORDERED: KETOROLAC TROMETHAMINE 15 MG/ML VIAL ONE (00:30)
[2024-02-21] MEDS: AMOX TR/POT CLAV 875MG/125MG TABLETS (FP) PO ONE (00:39)
[2024-02-21] MEDS: KETOROLAC TROMETHAMINE 15 MG/ML VIAL IM ONE (00:39)
== END 2024-02-21 01:33 | disposition home or self-care (01) ==
LOC: JER 23:50
PROC: 3E0133Z Introduction of Anti-inflammatory into Subcutaneous Tissue, Percutaneous Approach (ICD-10-PCS; principal; 2024-02-21)
DX: R22.0 Localized swelling, mass and lump, head (principal); K08.89 Other specified disorders of teeth and supporting structures; R42 Dizziness and giddiness
CPT/HCPCS: 93005; 93010; 99284-25

== ENCOUNTER 2024-03-01 17:22 | Observation (INO) | payer OTHER ==
[2024-03-01 18:14] LABS: BASO % 0.3 % (0-2.0); HEMATOCRIT 30.9 % (32.4-45.2); HEMOGLOBIN 9.7 GM/dL (10.7-15.3); MCH 21.5 pg (25.7-33.7); MCHC 31.5 g/dl (32.0-36.0); MEAN CELL VOLUME 68.3 fl (80-96); MEAN PLT VOLUME 7.6 fl (7.5-11.1); MONO % 6.3 % (3.8-10.2); NEUT % 62.4 % (42.8-82.8); PLATELET COUNT 413 10^3/uL (134-434); RBC 4.53 M/mm3 (3.60-5.2); RDW 21.2 % (11.6-15.6); WHITE BLOOD COUNT 6.7 K/mm3 (4.0-10.0)
[2024-03-01] MEDS: SODIUM CHLORIDE 1,000 ML IV SCH (18:20)
[2024-03-01 18:23] LABS: INR 1.05 (0.83-1.09); PROTHROMBIN TIME (PATIENT) 11.9 SEC (9.7-13.0)
[2024-03-01 18:24] LABS: ADD RBC MORPHOLOGY YES
[2024-03-01 18:26] LABS: ACTIVATED PTT 30.6 SECONDS (25.2-36.5)
[2024-03-01 18:37] LABS: CHLORIDE 105 mmol/L (98-107); POTASSIUM 3.4 mmol/L (3.5-5.1); SODIUM 137 mmol/L (136-145)
[2024-03-01 18:39] LABS: CALCIUM 8.7 mg/dL (8.5-10.1)
[2024-03-01 18:40] LABS: ALBUMIN 2.9 g/dl (3.4-5.0); ANION GAP 5 mmol/L (4-13); CO2 28 mmol/L (21-32)
[2024-03-01 18:41] LABS: BLOOD UREA NITROGEN 13.6 mg/dL (7-18); GLUCOSE,RANDOM 119 mg/dL (74-106)
[2024-03-01 18:43] LABS: SGOT/AST 34 U/L (15-37); SGPT/ALT 44 U/L (13-61)
[2024-03-01 18:44] LABS: CREATININE 0.7 mg/dL (0.55-1.3)
[2024-03-01 18:45] LABS: CHOLESTEROL 165 mg/dL (50-200); TOT PROT 6.7 g/dl (6.4-8.2)
[2024-03-01 18:46] LABS: BILIRUBIN,TOTAL 0.3 mg/dL (0.2-1); LDL CHOLESTEROL (ONLY SJRH) 102 mg/dL (5-100)
[2024-03-01 18:47] LABS: ALK PHOS 124 U/L (45-117)
[2024-03-01 18:48] LABS: HDL CHOLESTEROL 43 mg/dL (40-60)
[2024-03-01 19:16] LABS: ANISOCYTOSIS 2+; MACROCYTOSIS 0
[2024-03-01] MEDS ORDERED: POTASSIUM CHLORIDE TABS 20 MEQ TABLET.ER (FP) PO ONE (19:19)
[2024-03-01] MEDS ORDERED: predniSONE 20 MG TABLET (UD) ONE (19:19)
[2024-03-01] MEDS ORDERED: valACYclovir HCL 500 MG TABLET (FP) ONE (19:35)
[2024-03-01] MEDS: predniSONE 20 MG TABLET (UD) PO ONE (19:51)
[2024-03-01] MEDS: valACYclovir HCL 500 MG TABLET (FP) PO ONE (19:51)
[2024-03-01] MEDS: POTASSIUM CHLORIDE ORAL LIQUID 20 MEQ/15 ML PO ONE (19:51)
[2024-03-01] MEDS ORDERED: LABETALOL HCL 100 MG TABLET (FP) ONE (21:54)
[2024-03-01] MEDS: LABETALOL HCL 200 MG TABLET (FP) PO ONE (21:56)
[2024-03-01] MEDS: POTASSIUM CHLORIDE TABS 20 MEQ TABLET.ER (FP) PO ONE (22:26)
[2024-03-02] MEDS ORDERED: INSULIN ASPART SLIDING SCALE (NOVOLOG) 1 VIAL SQ ONE (06:39)
[2024-03-02] MEDS: INSULIN ASPART SLIDING SCALE (NOVOLOG) 1 VIAL SQ SCH (06:43)
[2024-03-02 08:04] LABS: HEMATOCRIT 30.6 % (32.4-45.2); HEMOGLOBIN 9.6 GM/dL (10.7-15.3); MCH 21.6 pg (25.7-33.7); MCHC 31.5 g/dl (32.0-36.0); MEAN CELL VOLUME 68.6 fl (80-96); RBC 4.46 M/mm3 (3.60-5.2); RDW 21.3 % (11.6-15.6)
[2024-03-02 08:05] LABS: BASO % 0.2 % (0-2.0); LYMPH % 13.4 % (8-40); MEAN PLT VOLUME 8.3 fl (7.5-11.1); MONO % 2.2 % (3.8-10.2); NEUT % 84.2 % (42.8-82.8); PLATELET COUNT 420 10^3/uL (134-434)
[2024-03-02 08:29] LABS: POTASSIUM 3.9 mmol/L (3.5-5.1)
[2024-03-02 08:31] LABS: BLOOD UREA NITROGEN 16.8 mg/dL (7-18); CALCIUM 9.5 mg/dL (8.5-10.1)
[2024-03-02 08:32] LABS: ALBUMIN 3.2 g/dl (3.4-5.0); MAGNESIUM 2.1 mg/dL (1.8-2.4)
[2024-03-02 08:35] LABS: CREATININE 0.9 mg/dL (0.55-1.3); PHOSPHOROUS 2.4 mg/dL (2.5-4.9)
[2024-03-02 08:36] LABS: BILIRUBIN,TOTAL 0.2 mg/dL (0.2-1); TOT PROT 7.4 g/dl (6.4-8.2)
[2024-03-02] MEDS: predniSONE 20 MG TABLET (UD) PO SCH (10:21)
[2024-03-02] MEDS: HYDROCHLOROTHIAZIDE 25 MG TABLET (FP) PO SCH (10:21)
[2024-03-02] MEDS: LOSARTAN POTASSIUM 50 MG TABLET PO SCH (10:21)
[2024-03-02] MEDS: ENOXAPARIN NA (PORCINE) 40 MG/0.4 ML DISP.SYRIN SQ SCH (10:22)
[2024-03-02] MEDS: ARTIFICIAL TEARS OPHTHALMIC DROPS OS PRN (14:13)
[2024-03-02] MEDS: PANTOPRAZOLE 40 MG TABLET PO SCH (14:16)
[2024-03-02] MEDS: [UNRECOGNIZED DRUG - OTHER] PO SCH (14:17)
[2024-03-02] MEDS: VALACYCLOVIR HCL 1000 MG PO SCH (14:17)
[2024-03-02] MEDS: valACYclovir HCL 500 MG TABLET (FP) PO SCH (17:10)
[2024-03-02] MEDS: ATORVASTATIN CA 40 MG TABLET (FP) PO SCH (21:38)
[2024-03-03 10:06] LABS: BASO % 0.3 % (0-2.0); HEMATOCRIT 30.2 % (32.4-45.2); HEMOGLOBIN 9.2 GM/dL (10.7-15.3); LYMPH % 25.3 % (8-40); MCH 21.5 pg (25.7-33.7); MCHC 30.5 g/dl (32.0-36.0); MEAN CELL VOLUME 70.5 fl (80-96); MEAN PLT VOLUME 8.6 fl (7.5-11.1); MONO % 2.7 % (3.8-10.2); NEUT % 71.7 % (42.8-82.8); PLATELET COUNT 398 10^3/uL (134-434); RBC 4.29 M/mm3 (3.60-5.2); RDW 21.6 % (11.6-15.6); WHITE BLOOD COUNT 16.4 K/mm3 (4.0-10.0)
[2024-03-03 10:28] LABS: POTASSIUM 3.8 mmol/L (3.5-5.1)
[2024-03-03 10:30] LABS: ALBUMIN 3.1 g/dl (3.4-5.0); CALCIUM 9.1 mg/dL (8.5-10.1)
[2024-03-03 10:31] LABS: BLOOD UREA NITROGEN 20.4 mg/dL (7-18)
[2024-03-03 10:34] LABS: CREATININE 0.9 mg/dL (0.55-1.3)
[2024-03-03 10:35] LABS: BILIRUBIN,TOTAL 0.4 mg/dL (0.2-1); TOT PROT 6.9 g/dl (6.4-8.2)
[2024-03-03] MEDS: amLODIPine BESYLATE 5 MG TABLET (FP) PO SCH (11:45)
[2024-03-03] MEDS: amLODIPine BESYLATE 5 MG TABLET (FP) PO ONE (18:55)
[2024-03-04] MEDS: amLODIPine BESYLATE 10 MG TABLET (FP) PO SCH (10:52)
[2024-03-05 08:53] LABS: POTASSIUM 3.7 mmol/L (3.5-5.1)
[2024-03-05 08:55] LABS: CALCIUM 9.2 mg/dL (8.5-10.1)
[2024-03-05 08:56] LABS: BLOOD UREA NITROGEN 30.2 mg/dL (7-18); MAGNESIUM 2.2 mg/dL (1.8-2.4)
[2024-03-05 08:59] LABS: CREATININE 0.8 mg/dL (0.55-1.3)
[2024-03-05] MEDS ORDERED: REGADENOSON 0.4 MG/5 ML PRE-FILLED SYRINGE IVPUSH ONE (12:28)
[2024-03-05] MEDS: REGADENOSON 0.4 MG/5 ML PRE-FILLED SYRINGE IVPUSH ONE (12:30)
[2024-03-05 14:30] LABS: URINE APPEARANCE CLEAR; URINE BILIRUBIN NEGATIVE (NEGATIVE); URINE COLOR YELLOW; URINE GLUCOSE (UA) NEGATIVE (NEGATIVE); URINE KETONE NEGATIVE (NEGATIVE); URINE LEUK ESTERASE NEGATIVE (NEGATIVE); URINE NITRITE NEGATIVE (NEGATIVE); URINE PROTEIN NEGATIVE (NEGATIVE); URINE UROBILINOGEN 0.2 mg/dL (0.2-1.0)
[2024-03-05 16:28] VITALS: BMI 25.7
[2024-03-06 04:18] VITALS: RESP 18
[2024-03-06 11:34] LABS: BASO % 0.3 % (0-2.0); EOS % 0.2 % (0-4.5); HEMATOCRIT 32.4 % (32.4-45.2); HEMOGLOBIN 10.2 GM/dL (10.7-15.3); MCH 21.8 pg (25.7-33.7); MCHC 31.5 g/dl (32.0-36.0); MEAN CELL VOLUME 69.4 fl (80-96); MEAN PLT VOLUME 9.2 fl (7.5-11.1); MONO % 5.7 % (3.8-10.2); NEUT % 54.8 % (42.8-82.8); PLATELET COUNT 402 10^3/uL (134-434); RBC 4.67 M/mm3 (3.60-5.2); RDW 21.6 % (11.6-15.6); WHITE BLOOD COUNT 12.6 K/mm3 (4.0-10.0)
[2024-03-06 12:24] LABS: ANISOCYTOSIS 1+; MACROCYTOSIS 0; OVALOCYTE 1+
[2024-03-06 12:32] VITALS: BP 168/58; PULSE 53; TEMP 53
[2024-03-06 12:44] LABS: POTASSIUM 3.1 mmol/L (3.5-5.1)
[2024-03-06 12:47] LABS: ALBUMIN 3.3 g/dl (3.4-5.0)
[2024-03-06 12:52] LABS: BILIRUBIN,TOTAL 0.4 mg/dL (0.2-1)
[2024-03-06 12:53] LABS: TOT PROT 7.1 g/dl (6.4-8.2)
[2024-03-06 12:58] LABS: MAGNESIUM 2.3 mg/dL (1.8-2.4)
[2024-03-08 18:11] LABS: RENIN ACTIVITY(PRA) 0.438 ng/mL/hr (0.167-5.380)
== END 2024-03-06 12:15 | disposition home or self-care (01) ==
LOC: JER 17:22 → JERBED 22:14 → J4S 03-02 09:00
PROVIDERS: ADMIT Internal Medicine
DX: G51.0 Bell's palsy (principal); I16.0 Hypertensive urgency; I10 Essential (primary) hypertension; F41.9 Anxiety disorder, unspecified; R73.03 Prediabetes
CPT/HCPCS: 0241U-QW; 36415; 70450-TC; 70496-TC; 70498-TC; 70551-TC; 71045-TC-FY; 78452-TC; 80048; 80053; 80061; 81003; 82088; 82550; 82962; 83036; 83735; 84100; 84244; 84443; 84484; 84703; 85025; 85610; 85730; 86618; 86850; 86900; 86901; 87040; 87086; 87491; 87591; 87661; 93005; 93010; 93017; 93306-TC; 99285-25; A9502; G0378; J2785